=== PATIENT | male | born 1985 | race Caucasian/White ===

== ENCOUNTER 2020-11-25 05:35 | Emergency (ER) | payer SELFPAY ==
[~2020-11-25] VITALS: Ht 172.7 cm; Wt 113.6 kg
[2020-11-25 06:04] LABS: BASO % 0.3 % (0.0-1.0); EOS # 0.1 10^3/uL (0.0-0.5); EOS % 0.5 % (0.0-3.0); HEMATOCRIT 44.4 % (42.0-52.0); LYMPH # 2.3 10^3/uL (1.5-5.0); LYMPH % 25.3 % (24.0-44.0); MEAN CORPUSCULAR HEMOGLOBIN 27.9 pg (27.0-33.0); MEAN CORPUSCULAR HGB CONC 33.8 g/dl (32.0-36.5); MEAN CORPUSCULAR VOLUME 82.5 fl (80.0-96.0); MONO # 0.6 10^3/uL (0.0-0.8); MONO % 6.3 % (2.0-8.0); NEUTROPHILS # 6.2 10^3/uL (1.5-8.5); NEUTROPHILS % 67.4 % (36.0-66.0); PLATELET COUNT, AUTOMATED 277 10^3/uL (150-450); RED BLOOD COUNT 5.38 10^6/uL (4.30-6.10); WHITE BLOOD COUNT 9.2 10^3/uL (4.0-10.0)
[2020-11-25] MEDS ORDERED: NITROGLYCERIN 2% OINT 1 GM *U/D* PKT TOP ONE (06:05)
[2020-11-25 06:10] VITALS: BP 145/94
[2020-11-25] MEDS: MORPHINE 2 MG/ML 1ML VIAL (J2270) IV PRN ×2 (06:11→06:44)
[2020-11-25 06:14] LABS: INR 0.97; PROTHROMBIN TIME 13.2 SECONDS (12.7-14.5)
[2020-11-25 06:15] LABS: PARTIAL THROMBOPLASTIN TIME 27.2 SECONDS (25.9-37.0)
[2020-11-25] MEDS ORDERED: GI COCKTAIL 50ML BTL(HYOSCYAMINE/MAALOX/LIDOCAINE VISCOUS)(1:3:1) PO ONE (06:15)
[2020-11-25 06:20] LABS: D-DIMER QUANT < 270 ng/ml (<500)
[2020-11-25] MEDS ORDERED: OMEP-218 PO (06:26)
[2020-11-25 06:42] LABS: ALBUMIN 3.4 GM/DL (3.2-5.2); ALT/SGPT 78 U/L (12-78); BILIRUBIN,DIRECT < 0.1 MG/DL (0.0-0.2); BILIRUBIN,TOTAL 0.4 MG/DL (0.2-1.0); BLOOD UREA NITROGEN 16 MG/DL (7-18); CALCIUM LEVEL 8.6 MG/DL (8.5-10.1); CARBON DIOXIDE LEVEL 23 MEQ/L (21-32); CHLORIDE LEVEL 108 MEQ/L (98-107); CK-MB VALUE MASS 4.4 NG/ML (<3.6); CPK CREATINE PHOSPHOKINASE 101 U/L (39-308); CREATININE FOR GFR 1.21 MG/DL (0.70-1.30); GLOMERULAR FILTRATION RATE > 60.0 (>60); GLUCOSE, FASTING 142 MG/DL (70-100); LIPASE 88 U/L (73-393); MB/CK RELATIVE INDEX 4.36 (< OR =4); POTASSIUM SERUM 4.2 MEQ/L (3.5-5.1); SODIUM LEVEL 139 MEQ/L (136-145); TOTAL PROTEIN 6.9 GM/DL (6.4-8.2); TROPONIN I 0.28 NG/ML (< 0.10)
--- NOTE | 2020-11-25 06:46 | ECGEPIP ---
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
--- NOTE | 2020-11-25 06:47 | ECGEPIP ---
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
[2020-11-25 06:50] LABS: RSV AMPLIFICATION NEGATIVE (NEGATIVE)
[2020-11-25 06:58] LABS: C REACTIVE PROTEIN QUANTITATIV 0.36 MG/DL (0.00-0.30)
[2020-11-25] MEDS ORDERED: HEPARIN SOD (PORCINE) 5000UNITS/ML 1ML VIAL/SYRINGE IV ONE (07:10)
[2020-11-25] MEDS ORDERED: HEPARIN DRIP 25,000 UNITS in IV 1 EA IV SCH (07:10)
[2020-11-25 07:12] LABS: ERYTHROCYTE SEDIMENTATION RATE 6 mm/hr (0-15)
[2020-11-25] MEDS: MORPHINE 4 MG/ML 1ML VIAL/SYRINGE (J2270) IV PRN ×2 (07:41→09:23)
--- NOTE | 2020-11-25 07:55 | REPVR ---
PROCEDURE INFORMATION: Exam: XR Chest Exam date and time: 11/25/2020 6:11 AM Age: 35 years old Clinical indication: Pain; Angina pectoris; Additional info: Chest pain TECHNIQUE: Imaging protocol: XR of the chest. Views: 1 view. COMPARISON: No relevant prior studies available. FINDINGS: Lungs: Unremarkable. No consolidation. Pleural spaces: Unremarkable. No pleural effusion. No pneumothorax. Heart/Mediastinum: Unremarkable. No cardiomegaly. Bones/joints: Unremarkable. IMPRESSION: No acute findings. Electronically signed by: Ilan Jhaveri On 11/25/2020 07:54:31 AM
[2020-11-25 09:29] VITALS: BP 146/82
--- NOTE | 2020-11-25 18:54 | ECGEPIP ---
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
== END 2020-11-25 09:31 | disposition short-term general hospital (02) ==
LOC: M ED 05:35
DX: I21.4 Non-ST elevation (NSTEMI) myocardial infarction (principal); K21.9 Gastro-esophageal reflux disease without esophagitis
CPT/HCPCS: 71045; 80048; 80076; 82550; 82553; 83690; 84443; 84484; 85025; 85379; 85610; 85652; 85730; 86140; 87631; 93005; 93041; 94760; 96365; 96366; 96375; 96376; 99285; J1644; J2270